=== PATIENT | male | born 1955 | race Caucasian/White ===

== ENCOUNTER 2019-01-18 08:02 | Inpatient (IN) ==
--- NOTE | 2019-01-18 05:56 | Internal Med History&Physical ---
Date of Encounter: 01/18/19 Time of Encounter: 05:55 Internal Medicine - H&P: HPI Chief complaint: Small bowel obstruction Admitted From: Hospital to Hospital Transfer Plans for Post Hospital Care: Home History of present illness: Mr. Gardner is a 63 year old male Patient presented to the [facility] emergency room with abdominal pain for 24 hours. He states that the day previously in the afternoon he started experiencing sharp cramping abdominal pain, focused in the left lower abdomen that was intermittent. He has had bowel movements but they have been small. The pain improves with rest but is worse with movement. One year ago he had similar pain like this where he was diagnosed with a small bowel obstruction, admitted, an NG tube was placed and it resolved without surgical intervention. He felt that this may be another bowel obstruction so he came to the hospital for further evaluation. Vital signs at [facility]: Temperature 98.0, blood pressure 140/85, pulse 82, Dr. rate 19, O2 saturation 100% on room air CBC: White count 9.9, hemoglobin 15.1, hematocrit 45.1, platelets 226 BMP: Sodium 142, potassium 3.6, chloride 103, CO2 22, P1 26, creatinine 1.09, glucose 154. Lipase 75 Liver function tests within normal limits CT of the abdomen and pelvis with IV contrast demonstrated a small bowel obstruction with mild sigmoid diverticulitis. There are several fat-containing ventral abdominal hernias. Multiple distended loops of gas and fluid-filled small bowel to 4 cm in caliber. Transition point seen in area of postsurgical change in the right mid pelvis. No evidence of bowel perforation. There is no discrete collection to suggest abscess. Urinalysis: Negative for blood, nitrites and leukocyte esterase. Patient was given Cipro, Flagyl as well as IV Dilaudid. An NG tube was also placed. Blood cultures were drawn initially the patient was accepted at [facility] under the care of general surgery team. Patient then refused to go to [facility] and requested transfer to [facility] for further management. Upon my evaluation patient is resting comfortably in the hospital bed in no acute distress. He has been having on and off abdominal pain in the left lower quadrant. He finds the NG tube uncomfortable. He is a full code. He denies significant family medical history. He denies chest pain, diarrhea and constipation. He has nausea but no vomiting. His abdominal pain is intermittent, and he had an episode of the pain during my exam. He has significant history of abdominal surgery as well, including a bowel resection. Past Med Surg Social Fam HX - Past Medical History Medical history: DVT - Past Surgical History Surgical History: tonsillectomy Additional surgical history: brain sx, perf bowel, hemroidectomy - Social History Smoking Status: Never smoker Alcohol use: occasionally Drug use: marijuana - Family History Mother Hx Family Cardiac Disorders: Yes Hx Family Endocrine Disorder: Yes Internal Medicine - H&P: Meds No Known Home Drugs 01/18/19 [History] Allergy/AdvReac Type Severity Reaction Status Date / Time No Known Allergies Allergy Verified 01/18/19 01:37 All Systems PM: A 10-system review of systems was performed and is negative for pertinent findings except as documented above in the HPI. - Constitutional Vitals: Temp Pulse Resp BP Pulse Ox 97.7 F 78 16 126/86 98 01/18/19 03:55 01/18/19 03:55 01/18/19 03:55 01/18/19 03:55 01/18/19 03:55 General appearance: Present: cooperative, A&O X 3, pleasant, no acute distress, answers questions appropriately Exam: - - Head Head exam: Present: normal inspection - Eye Eye exam: Present: EOMI, normal appearance - Respiratory Respiratory exam: Present: CTAB. Absent: rales, respiratory distress, rhonchi, wheezes - Cardiovascular Cardiovascular exam: Present: RRR. Absent: diastolic murmur, systolic murmur - GI/Abdominal GI/Abdominal exam: Present: normal bowel sounds, soft, tenderness. Absent: diminished bowel sounds, firm, guarding Additional comments: Mild tenderness with palpation over the left lower quadrant. - Extremities Exam Extremities exam: Present: warm, radial pulses palpable and symmetrical. Absent: calf tenderness, pedal edema, tenderness - Neurological Exam Neurological exam: Present: motor sensory deficit, facial droop, speech deficit. Absent: no focal deficits, strengths equal and symetr throughout - Skin Skin exam: Present: dry, normal color, warm Internal Med - H&P Results - Labs CBC & Chem 7: 01/18/19 06:24 01/18/19 06:24 - Assessment and Plan (1) Small bowel obstruction Current Visit: Yes Status: Acute Assessment and plan: As seen on imaging. Patient had an NG tube placed at [facility]. Continue NG tube IV fluids Surgery consultation, follow up recommendations Pain management as indicated (2) Diverticulitis Current Visit: Yes Status: Acute Assessment and plan: As seen on imaging. Patient was started on cipro and flagyl at [facility]. Continue IV antibiotics NPO General surgery consultation Pain management as needed. (3) Nausea Current Visit: Yes Status: Acute Assessment and plan: Zofran PRN (4) DVT prophylaxis Current Visit: Yes Status: Acute Assessment and plan: SCDs - Time Spent With Patient Total time spent is greater than 50% in coordination of care (as documented) at patient's floor/unit and/or counseling patient: Greater than 35 minutes
[2019-01-18 07:41] LABS: Hematocrit 43.1 % (37.5-50.1); Hemoglobin 14.5 g/dL (12.9-16.9); Mean Corpuscular HGB Conc 33.6 g/dL (31.6-35.5); Mean Corpuscular Hemoglobin 28.9 pg (28.0-33.3); Mean Platelet Volume 10.3 fL (9.4-12.4); Platelet Count 220 K/mcL (140-400); Red Blood Count 5.01 M/mcL (4.19-5.50); White Blood Count 11.2 K/mcL (4.3-11.1)
[2019-01-18 07:53] LABS: BUN/Creatinine Ratio 27 (6-26); Blood Urea Nitrogen 24 mg/dL (8-23); Calcium 9.8 mg/dL (8.6-10.3); Carbon Dioxide 23 mEq/L (23-29); Chloride 104 mEq/L (98-107); Glucose 135 mg/dL (70-105); Osmolality,Calculated 298 (280-300); Potassium 3.9 mEq/L (3.5-5.1); Sodium 141 mEq/L (136-145); eGFR For African Americans > 60 (> 60); eGFR For Non-African Americans > 60 (> 60)
[~2019-01-18 08:02] MED LIST: Naloxone 0.4 MG/ML INJ IVP PRN; Ondansetron 4 MG/2 ML VIAL IVP PRN
[2019-01-18] MEDS: 0.9 % Sodium Chloride 1,000 ML IVC SCH ×2 (08:17→20:17)
[2019-01-18] MEDS: MetroNIDAZOLE 500 MG/100 ML 500 MG/100 ML BAG IVPB SCH ×3 (11:03→23:56)
--- NOTE | 2019-01-18 13:39 | AcuteCare Surgery Consult Note ---
Date of Encounter: 01/18/19 Time of Encounter: 07:00 Assessment and Plan (1) Diverticulitis Current Visit: Yes Status: Acute Recommend IV abx, NPO, NGT, IVF (2) Small bowel obstruction Current Visit: Yes Status: Acute Will initial conservative therapy with IVF, NPO and NGT. If conservative management doesn't adequately treat SBO and surgery becomes necessary, then pt requests transfer to [facility]. History of Present Illness Reason for consult: abdominal pain Requesting physician: Vincetn Lanier History of present illness: This 63 y/o male presents to [facility] from [facility] ED. He went to the ED because of progressively worsening abdominal pain. He reports a previous hx of bowel obstruction for which he required surgery with 3 segment of bowel resected in the past. He states that he was told that if he ever needed surgery on his abdomen that it was recommended by his previous surgeon that he needs a specialist at [facility]. He also reports that he was told that he could have his "scar tissue" treated with a scope. He currently reports the abdominal pain is persistent and constant however, it is no longer worsening. He reports no further nausea with NGT in place. He reports recent small BM in the last 24 hours but, no flatus in since a few hours before he came to the hospital. Past Med Surg Social Fam HX - Past Medical History Medical history: DVT - Past Surgical History Surgical History: tonsillectomy Additional surgical history: brain sx, perf bowel, hemroidectomy - Social History Smoking Status: Never smoker Alcohol use: occasionally Drug use: marijuana - Family History Mother Hx Family Cardiac Disorders: Yes Hx Family Endocrine Disorder: Yes Medications and Allergies No Known Home Drugs 01/18/19 [History] Allergy/AdvReac Type Severity Reaction Status Date / Time No Known Allergies Allergy Verified 01/18/19 01:37 Review of Systems All systems PM: The remainder of the systems were reviewed and are negative - Constitutional as per HPI, no anorexia, no chills, no daytime sleepiness, no fatigue, no fever(s), no malaise, no night sweats, no weakness - EENT Nose, mouth and throat: no dizziness, no dry mouth, no nasal congestion, no nasal discharge, no sinus pain, no sinus pressure, no sore throat - Cardiovascular no chest pain, no diaphoresis, no dyspnea, no edema - Respiratory no cough, no dyspnea, no wheezing - Gastrointestinal abdominal pain, bloating, cramping, nausea, no belching, no constipation, no diarrhea, no loose stools, no vomiting - Genitourinary no dysuria, no flank pain, no urinary frequency - Musculoskeletal no back pain, no joint swelling, no limited range of motion, no neck pain - Integumentary no dry skin, no pruritus, no rash, no wounds, no jaundice - Neurological no confusion, no dizziness, no focal weakness, no weakness - Psychiatric no anxiety, no depression - Endocrine no fatigue - Hematologic/Lymphatic no easy bleeding, no easy bruising General Surgery Exam Initial Vital Signs Temp Pulse Resp BP Pulse Ox 97.9 F 78 17 162/99 97 01/18/19 01:45 01/18/19 01:45 01/18/19 01:45 01/18/19 01:45 01/18/19 01:45 - General physical appearance well developed, well nourished, no distress, no pain. negative: jaundice - Eyes PERRL, normal ocular movement. negative: icteric - ENT normal mucosa, no congestion. negative: nasal discharge - Neck no masses, trachea midline, no lymphadectomy, no venous distension - Respiratory normal respiratory effort, clear to auscultation - Cardiovascular Cardiovascular exam: Present: RRR. Absent: murmurs, JVD - Abdomen Abdomen general surgery: Present: bowel sounds present (hypoactive), soft, tender Abdominal Tenderness: Present: diffusely Hernia: Present: incisional (multiple incisional hernias without strangulation) - Genitourinary Present: normal penis with no external lesions - Integumentary Integumentary general surgery: Present: warm and dry - Neurologic Present: CN 2-12 grossly intact, normal coordination - Musculoskeletal Present: normal posture - Psychiatric Psychiatric general surgery: Present: A&Ox3, appropriate Exam Initial Vital Signs Temp Pulse Resp BP Pulse Ox 97.9 F 78 17 162/99 97 01/18/19 01:45 01/18/19 01:45 01/18/19 01:45 01/18/19 01:45 01/18/19 01:45 Results - Labs 01/18/19 06:24 01/18/19 06:24 Abnormal lab results WBC 11.2 K/mcL (4.3-11.1) H 01/18/19 06:24 BUN 24 mg/dL (8-23) H 01/18/19 06:24 27 (6-26) H 01/18/19 06:24 Glucose 135 mg/dL (70-105) H 01/18/19 06:24 POC Glucose 105 mg/dL (70-99) H 01/18/19 11:52 Diabetes panel 01/18/19 Range/Units 06:24 Sodium 141 (136-145) mEq/L Potassium 3.9 (3.5-5.1) mEq/L Chloride 104 (98-107) mEq/L Carbon Dioxide 23 (23-29) mEq/L BUN 24 H (8-23) mg/dL Creatinine 0.89 (0.70-1.30) mg/dL Glucose 135 H (70-105) mg/dL Calcium 9.8 (8.6-10.3) mg/dL Calcium panel 01/18/19 Range/Units 06:24 Calcium 9.8 (8.6-10.3) mg/dL Pituitary panel 01/18/19 Range/Units 06:24 Sodium 141 (136-145) mEq/L Potassium 3.9 (3.5-5.1) mEq/L Chloride 104 (98-107) mEq/L Carbon Dioxide 23 (23-29) mEq/L BUN 24 H (8-23) mg/dL Creatinine 0.89 (0.70-1.30) mg/dL Glucose 135 H (70-105) mg/dL Calcium 9.8 (8.6-10.3) mg/dL Adrenal panel 01/18/19 Range/Units 06:24 Sodium 141 (136-145) mEq/L Potassium 3.9 (3.5-5.1) mEq/L Chloride 104 (98-107) mEq/L Carbon Dioxide 23 (23-29) mEq/L BUN 24 H (8-23) mg/dL Creatinine 0.89 (0.70-1.30) mg/dL Glucose 135 H (70-105) mg/dL Calcium 9.8 (8.6-10.3) mg/dL All other labs normal. - Imaging CT scan - abdomen: report reviewed (ABD/Pelvis CT report from [facility] reveals SBO with transition point and acute sigmoid diverticulitis) CT scan - pelvis: report reviewed Consult Discharge Plan - Plan Referrals: Marcus Ramsay DO [Primary Care Provider] -
--- NOTE | 2019-01-18 22:23 | Event Note ---
Date of Encounter: 01/18/19 Time of Encounter: 22:22 Notified by nurse of patient having small bowel movement and requesting to have NG tube out. Patient feeling well and having no nausea. Discussed with credit collections manager surgery Dr Ok Coyle, will dc NG tube and start clear liquid diet.
[2019-01-19 03:12] VITALS: BP 139/83
[2019-01-19] MEDS: 0.9 % Sodium Chloride 1,000 ML IVC SCH ×2 (04:35→05:26)
[2019-01-19] MEDS: MetroNIDAZOLE 500 MG/100 ML 500 MG/100 ML BAG IVPB SCH (06:27)
--- NOTE | 2019-01-19 08:02 | Discharge Summary ---
- NOTES TO OUTPATIENT PROVIDER Notes to Outpatient Provider: PCP in 5 to 7 days. Follow up out pt with primary surgeon. Date of Encounter: 01/19/19 Time of Encounter: 08:00 - Discharge Diagnosis (1) Diverticulitis Priority: Primary Status: Acute Assessment and Plan: As seen on imaging. Patient was started on cipro and flagyl at [facility] ER. Was on IV antibiotics and will DC on PO antibiotics Was NPO but diet advanced and tolerated Seen by General surgery consult States he onl has mild tenderness LLQ. Diet advanced and tolerated. (2) Small bowel obstruction Priority: Primary Status: Resolved Assessment and Plan: As seen on imaging. Patient had an NG tube placed at [facility] ER. HAd BM last night and NG tube discontinued. IV fluids given as well. Surgery consulted and agreed with above management. Pt states pain is almost completely resolved. States he onl has mild tenderness LLQ. Diet advanced and tolerated. (3) Nausea Priority: Secondary Status: Resolved Assessment and Plan: Resolved. 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 He states that the day previously in the afternoon he started experiencing sharp cramping abdominal pain, focused in the left lower abdomen that was intermittent. He has had bowel movements but they have been small. The pain improves with rest but is worse with movement. One year ago he had similar pain like this where he was diagnosed with a small bowel obstruction, admitted, an NG tube was placed and it resolved without surgical intervention. He felt that this may be another bowel obstruction so he came to the hospital for further evaluation. Discharge discussed with: patient - Time Spent with Patient Total time spent providing and/or coordinating discharge services: Time spent: Greater than 30 minutes - Discharge Medications Prescriptions: No Action No Known Home Drugs 1 each .ROUTE AD each Home Medications: Ciprofloxacin [Cipro] 500 mg PO BID 14 Days #28 tablet 01/19/19 [Rx] metroNIDAZOLE [Flagyl] 500 mg PO TID 14 Days #42 tablet 01/19/19 [Rx] Allergies/Adverse Reactions: Allergy/AdvReac Type Severity Reaction Status Date / Time No Known Allergies Allergy Verified 01/18/19 22:29 Date of admission: 01/18/19 08:02 Primary care physician: Marcus Ramsay DO Consults: 01/18/19 06:14 Consult to Surgery [CONS] Routine Consulting Provider: Acute Care Surgery Reason for Consult: Small bowel obstruction Call Completed: Yes Discharging clinician: Ashwini Duenas Anticipated date of discharge: 01/19/19 - Constitutional Vitals: Temp Pulse Resp BP Pulse Ox 98.5 F 81 15 139/83 100 01/19/19 03:03 01/19/19 03:03 01/19/19 03:03 01/19/19 03:03 01/19/19 03:03 General appearance: Present: cooperative, A&O X 3, pleasant, no acute distress, answers questions appropriately Exam: . - Head Head exam: Present: atraumatic, normocephalic - Eye Eye exam: Present: PERRL, conjuntiva pink, sclera anicteric Pupils: Present: PERRL - Neck Neck exam general surgery: Present: supple, trachea midline. Absent: lymphadenopathy - Respiratory Respiratory exam: Present: CTAB. Absent: accessory muscle use, rales, rhonchi, wheezes - Cardiovascular Cardiovascular exam: Present: RRR, +S1, +S2. Absent: diastolic murmur, gallop, rubs, systolic murmur - GI/Abdominal GI/Abdominal exam: Present: normal bowel sounds, soft, no peritoneal signs. Absent: distended, tenderness - Extremities Exam Extremities exam: Present: warm, radial pulses palpable and symmetrical. Absent: calf tenderness, cyanotic, pedal edema - Neurological Exam Neurological exam: Present: CN II-XII intact, oriented X3, no focal deficits. Absent: pronater drift, facial droop, speech deficit - Skin Skin exam: Present: dry, intact - Patient Status Disposition: Home, Self-Care Condition: Good Overall status at discharge: patient is progressing back to baseline - Discharge Instructions Follow Up With: Marcus Ramsay DO [Primary Care Provider] - - Diet and Activity Activity: increase activity as tolerated Diet: advance to your usual diet
== END 2019-01-19 08:52 | disposition home or self-care (01) | DRG 389 ==
LOC: 3ANU
PROVIDERS: ADMIT Family Medicine; ATTEND Family Medicine